=== PATIENT | male | born 1950 | race Two or more races ===

== ENCOUNTER 2018-10-16 22:26 | Emergency (ER) | payer MEDICARE, OTHER ==
[~2018-10-16] VITALS: Ht 172.7 cm; Wt 74.8 kg
[~2018-10-16 22:26] MED LIST: AMBIEN10 M1 ORAL; CELEXA20 MG ORAL; LINZESS145 MCG PO; NORCO 5-325 TA1 EACH ORAL; TRAMADOL HCL50 MG ORAL; VICODIN ES 7.51 EAC1 ORAL; ZANTAC150 MG ORAL
[2018-10-16 23:00] VITALS: BP 158/90
--- NOTE | 2018-10-16 23:00 | NUR ---
ED Nurse Note: recieved pt from home with c/o headache at 10/10 s/p fall yesterday, pt states he tripped over floor heater, dallass k.o, state hit his head in center and has intermittent dizziness and constant pain which motrin is not relieving at home, pt denies cp or any other pain or discomforts, pt assited with gowning and plced on cardiac monitoring.
[2018-10-16] MEDS ORDERED: IBUPROFEN600 MG ORAL (23:32)
--- NOTE | 2018-10-16 23:32 | Emergency Room Report ---
History of Present Illness General Chief Complaint: Multiple Trauma/Fall Source: Patient Present Illness HPI Is a 68-year-old male with history of chronic pain and is currently taking hydrocodone and tramadol monthly. He presents with chief complaint of headache. He claimed that he tripped and fell 2 days ago. Did not pass out. Complaining of pain to the nose. Jaw on the head. No loss of consciousness. He said it come in because not getting better. She said his been taking Motrin without relief. Said that he took his [place] from his friend that helped. Pain is 8 out of 10. No focal deficit. Allergies: Coded Allergies: PENICILLINS (Verified Allergy, Unknown, 05/02/14) swelling Patient History Past Medical History: see triage record, old chart reviewed Past Surgical History: none Pertinent Family History: none Social History: Denies: smoking Immunizations: other Reviewed Nursing Documentation: PMH: Agreed; PSxH: Agreed Nursing Documentation-PMH Hx Cancer: No Hx Neurological Problems: Yes - HEADACHES Review of Systems Eye: Denies: eye pain, blurred vision ENT: Denies: ear pain, nose congestion, throat swelling Respiratory: Denies: cough, shortness of breath Cardiovascular: Denies: chest pain, palpitations Gastrointestinal: Denies: abdominal pain, diarrhea, nausea, vomiting Musculoskeletal: Denies: back pain, joint pain Skin: Denies: rash Neurological: Reports: headache; Denies: numbness Endocrine: Denies: increased thirst, increased urine Hematologic/Lymphatic: Denies: easy bruising All Other Systems: negative except mentioned in HPI Physical Exam Vital Signs Date Time Temp Pulse Resp B/P (MAP) Pulse Ox O2 Delivery O2 Flow Rate FiO2 10/16/18 22:36 97.9 72 16 178/99 97 Room Air vitals with high blood pressure Sp02 EP Interpretation: reviewed, normal General Appearance: well appearing, no apparent distress, alert Head: normocephalic, atraumatic, other - There is no trauma to his head or nose /face Eyes: bilateral eye PERRL, bilateral eye EOMI ENT: hearing grossly normal, normal pharynx Neck: full range of motion, supple, no meningismus Respiratory: chest non-tender, lungs clear, normal breath sounds Cardiovascular #1: regular rate, rhythm, no murmur Gastrointestinal: normal bowel sounds, non tender, no mass, no organomegaly, no bruit, non-distended Musculoskeletal: back normal, gait/station normal, normal range of motion Psychiatric: mood/affect normal Skin: warm/dry Medical Decision Making Diagnostic Impression: Primary Impression: Head injury, acute Qualified Codes: S09.90XA - Unspecified injury of head, initial encounter Additional Impression: Opiate dependence Qualified Codes: F11.20 - Opioid dependence, uncomplicated ER Course Patient presents with reported head injury and headache. I see no trauma. CT scan negative. Initially said is not on any pain medication but cures system she already takes [place] 7.5 #60 and tramadol #90 every month. I suspect that drug-seeking behavior and opioid dependency. will discharge home. CT/MRI/US Diagnostic Results CT/MRI/US Diagnostic Results : Imaging Test Ordered: CT head Impression negative per radiologist Last Vital Signs Date Time Temp Pulse Resp B/P (MAP) Pulse Ox O2 Delivery O2 Flow Rate FiO2 10/16/18 23:00 64 14 Room Air 10/16/18 23:00 97.9 158/90 99 Status: improved Disposition: HOME, SELF-CARE Condition: Stable Scripts Ibuprofen* (MOTRIN*) 600 Mg Tablet 600 MG ORAL THREE TIMES A DAY, #30 TAB 0 Refills Prov: Armando Mesa MD 10/16/18 Additional Instructions: Take your pain medication as prescribed. Follow-up with your doctor in 7 days. Return if worse. Armando Mesa MD Oct 16, 2018 23:32
[2018-10-17 00:05] VITALS: BP 151/79
--- NOTE | 2018-10-17 00:06 | Diagnostic Imaging Report ---
EXAM: CT Head Without Intravenous Contrast CLINICAL HISTORY: TRAUMA TECHNIQUE: Axial computed tomography images of the head/brain without intravenous contrast. CTDI is 0.15, 70.38 mGy and DLP is 1358 mGy-cm. One or more of the following dose reduction techniques were used: automated exposure control, adjustment of the mA and/or kV according to patient size, use of iterative reconstruction technique. COMPARISON: No relevant prior studies available. FINDINGS: Brain: No acute infarct, hemorrhage, mass or edema. Minimal chronic small vessel ischemic disease. Ventricles: Unremarkable. No ventriculomegaly. Bones/joints: Unremarkable. No acute fracture. Soft tissues: Unremarkable. Sinuses: Mild mucosal thickening in the paranasal sinuses. Mastoid air cells: Unremarkable as visualized. No mastoid effusion. IMPRESSION: No acute findings.
--- NOTE | 2018-10-17 00:10 | NUR ---
ED Nurse Note: pt being d/c to home, all test negative, pain meds given decreased pain level to 5/10, no nausea, dizziness, sob, or chest pain noted, pt given f/u info, after care instructions and prescription which he re-verbalizes s/s to continue to monitor for, pt armband removed without incident, pt is ambulatory, nad noted during d/c to home.
[2018-10-17 00:15] VITALS: BP 151/79
== END 2018-10-17 00:15 | disposition home or self-care (01) ==
LOC: EMR 22:58
DX: S09.8XXA Other specified injuries of head, initial encounter (principal); W01.0XXA Fall on same level from slipping, tripping and stumbling without subsequent striking against object, initial encounter; Y92.9 Unspecified place or not applicable; F11.20 Opioid dependence, uncomplicated; Z88.0 Allergy status to penicillin; R51 Headache
CPT/HCPCS: 70450; 99284

== ENCOUNTER 2018-10-31 13:56 | Outpatient (CLI) | payer MEDICARE, OTHER ==
[~2018-10-31 13:56] MED LIST changes: +IBUPROFEN600 MG ORAL
--- NOTE | 2018-10-31 15:40 | GI Progress Note ---
Assessment/Plan Problems: (1) S/P partial gastrectomy ICD Codes: Z98.89 - S/P partial gastrectomy SNOMED: 841111387 (2) Small intestinal bacterial overgrowth ICD Codes: K63.89 - Other specified diseases of intestine SNOMED: 278226283 (3) Abdominal pain ICD Codes: R10.9 - Abdominal pain SNOMED: 67871268 (4) PUD (peptic ulcer disease) ICD Codes: K27.9 - PUD (peptic ulcer disease) SNOMED: 93007031 (5) Constipation ICD Codes: K59.00 - Constipation SNOMED: 83679889 Status: stable Status Narrative Seen with Dr. Ren Assessment/Plan Ordered abdominal pelvis CT to evaluate pain Continue Linzess as directed Will consider colonoscopy during next visit Return to clinic after imaging study The patient was seen and examined at bedside and all new and available data was reviewed in the patients chart. I agree with the above findings, impression and plan. (Patient seen earlier today. Signature stamp does not reflect patient encounter time.). - Kee Ren MD Subjective Subjective Patient had a colonoscopy back in 2013 noted with colonic polyps Has complaint of abdominal pain, GERD, constipation Is on Linzess which causes occasional diarrhea Objective Temperature 98.3 Blood pressure 135/85 Pulse 72 95% room air Had 30 pound weight loss in the past 2 years, noted as intentional Weight 161 pounds General Appearance: WD/WN, no apparent distress, alert Cardiovascular: normal rate Respiratory/Chest: normal breath sounds, no respiratory distress Abdominal Exam: normal bowel sounds, non tender, soft Extremities: normal range of motion, non-tender Gloria Mesa COSMETOLOGIST APPRENTICE Oct 31, 2018 15:40
== END 2018-10-31 14:26 | disposition home or self-care (01) ==
LOC: PAN 13:56
DX: K63.89 Other specified diseases of intestine (principal); K27.9 Peptic ulcer, site unspecified, unspecified as acute or chronic, without hemorrhage or perforation; K59.00 Constipation, unspecified
CPT/HCPCS: 99202

== ENCOUNTER 2018-11-08 19:07 | Emergency (ER) | payer MEDICARE, OTHER ==
[~2018-11-08] VITALS: Ht 172.7 cm; Wt 72.6 kg
--- NOTE | 2018-11-08 19:16 | NUR ---
ED Nurse Note: Received report. BIBA from home, c/o abdominal pain 10/10 with constipation. Ambulatory, AAOx4, hx of gastric ulcers. Pt states he is feeling weak and his abdomen is tender upon palpation. Placed on residential monitor. Will continue to monitor.
[2018-11-08 19:30] VITALS: BP 153/80
[2018-11-08] MEDS ORDERED: Isovue-300 100ml vial INJ PRN (19:45)
--- NOTE | 2018-11-08 19:51 | Emergency Room Report ---
History of Present Illness General Chief Complaint: Abdominal Pain Source: Patient, Medical Record, EMS Present Illness HPI Patient is a 68-year-old male who presented after increased generalized body aches and lower extremity pain. Patient reportedly had increased pain to this umbilical area. Patient had prior history of abdominal hernia. Patient had recently been seen by general surgeon and was noted to have some increased abdominal discomfort. Patient reports having some increased testicular pain. He denies any fever. He reports having some slightly increased dark urine. Allergies: Coded Allergies: MORPHINE (Unverified Allergy, Unknown, 11/08/18) PENICILLINS (Verified Allergy, Unknown, 05/02/14) swelling Patient History Past Medical History: see triage record Reviewed Nursing Documentation: PMH: Agreed; PSxH: Agreed Nursing Documentation-PMH Hx Cancer: No Hx Gastrointestinal Problems: Yes - GASTRIC ULCERS Hx Neurological Problems: Yes - HEADACHES Review of Systems All Other Systems: negative except mentioned in HPI Physical Exam Vital Signs Date Time Temp Pulse Resp B/P (MAP) Pulse Ox O2 Delivery O2 Flow Rate FiO2 11/08/18 19:02 98.2 70 21 144/82 98 Room Air Sp02 EP Interpretation: reviewed, normal General Appearance: normal inspection, well appearing, no apparent distress, alert, GCS 15, non-toxic, Chronically Ill Head: atraumatic ENT: normal ENT inspection, hearing grossly normal, normal voice Neck: normal inspection, full range of motion, supple, no bony tend Respiratory: normal inspection, lungs clear, normal breath sounds, no respiratory distress, no retraction, no wheezing Cardiovascular #1: regular rate, rhythm, no edema Gastrointestinal: normal inspection, normal bowel sounds, non tender, soft, no guarding, no hernia Genitourinary: no CVA tenderness Musculoskeletal: normal inspection, back normal, normal range of motion Neurologic: normal inspection, alert, oriented x3, responsive, sports development officer III-XII nml as tested, speech normal Psychiatric: normal inspection, judgement/insight normal, mood/affect normal Skin: normal inspection, normal color, no rash Medical Decision Making Diagnostic Impression: Primary Impression: Abdominal pain Additional Impressions: Pleural condition, unspecified Intrahepatic bile duct dilation ER Course Patient presented for low back pain. Differential diagnosis include was not limited to because of complexity of patient's case laboratory testing and imaging studies were ordered. Patient was noted to have some abdominal discomfort. Prior abdominal surgery. CT of abdomen pelvis read by radiology showed intrahepatic and extrahepatic biliary dilation without any pancreatic head mass. Patient was noted to have abnormal liver function tests as well as normal white blood count. Dr. Jansen was contacted and patient will be followed with primary care physician tomorrow. Labs Test 11/08/18 19:40 White Blood Count 5.5 K/UL (4.8-10.8) Red Blood Count 4.32 M/UL (4.70-6.10) Hemoglobin 12.3 G/DL (14.2-18.0) Hematocrit 37.9 % (42.0-52.0) Mean Corpuscular Volume 88 FL (80-99) Mean Corpuscular Hemoglobin 28.4 PG (27.0-31.0) Mean Corpuscular Hemoglobin Concent 32.4 G/DL (32.0-36.0) Red Cell Distribution Width 11.9 % (11.6-14.8) Platelet Count 183 K/UL (150-450) Mean Platelet Volume 6.8 FL (6.5-10.1) Neutrophils (%) (Auto) 66.6 % (45.0-75.0) Lymphocytes (%) (Auto) 24.0 % (20.0-45.0) Monocytes (%) (Auto) 6.8 % (1.0-10.0) Eosinophils (%) (Auto) 0.5 % (0.0-3.0) Basophils (%) (Auto) 2.1 % (0.0-2.0) Prothrombin Time 12.3 SEC (9.30-11.50) Prothromb Time International Ratio 1.2 (0.9-1.1) Activated Partial Thromboplast Time 21 SEC (23-33) Urine Color Yellow Urine Appearance Clear Urine pH 5 (4.5-8.0) Urine Specific [place] 1.015 (1.005-1.035) Urine Protein 2+ (NEGATIVE) Urine Glucose (UA) Negative (NEGATIVE) Urine Ketones 1+ (NEGATIVE) Urine Blood Negative (NEGATIVE) Urine Nitrite Negative (NEGATIVE) Urine Bilirubin Negative (NEGATIVE) Urine Urobilinogen 1 MG/DL (0.0-1.0) Urine Leukocyte Esterase 1+ (NEGATIVE) Urine RBC 0-2 /HPF (0 - 0) Urine WBC 2-4 /HPF (0 - 0) Urine Squamous Epithelial Cells None /LPF (NONE/OCC) Urine Bacteria Few /HPF (NONE) Sodium Level 137 MMOL/L (136-145) Potassium Level 4.2 MMOL/L (3.5-5.1) Chloride Level 106 MMOL/L (98-107) Carbon Dioxide Level 22 MMOL/L (21-32) Anion Gap 9 mmol/L (5-15) Blood Urea Nitrogen 9 mg/dL (7-18) Creatinine 1.1 MG/DL (0.55-1.30) Estimat Glomerular Filtration Rate > 60 mL/min (>60) Glucose Level 93 MG/DL (74-106) Calcium Level 9.0 MG/DL (8.5-10.1) Total Bilirubin 0.3 MG/DL (0.2-1.0) Aspartate Amino Transf (AST/SGOT) 22 U/L (15-37) Alanine Aminotransferase (ALT/SGPT) 13 U/L (12-78) Alkaline Phosphatase 58 U/L (46-116) Troponin I 0.011 ng/mL (0.000-0.056) Total Protein 8.9 G/DL (6.4-8.2) Albumin 3.4 G/DL (3.4-5.0) Globulin 5.5 g/dL Albumin/Globulin Ratio 0.6 (1.0-2.7) Lipase 114 U/L (73-393) Last Vital Signs Date Time Temp Pulse Resp B/P (MAP) Pulse Ox O2 Delivery O2 Flow Rate FiO2 11/08/18 19:30 98.2 66 19 153/80 100 Room Air Status: improved Disposition: HOME, SELF-CARE Condition: Stable Scripts Hydrocodone Bit/Acetaminophen 10-325* (NORCO 10-325*) 1 Each Tablet 1 TAB ORAL Q6H PRN for For Pain, #20 TAB 0 Refills PRN PAIN Prov: Carlos Young MD 11/08/18 Carlos Young MD Nov 08, 2018 19:51
[2018-11-08 20:08] LABS: BASOPHILS % (AUTO) 2.1 % (0.0-2.0); EOSINOPHILS % (AUTO) 0.5 % (0.0-3.0); HEMATOCRIT 37.9 % (42.0-52.0); HEMOGLOBIN 12.3 G/DL (14.2-18.0); MEAN CORPUSCULAR VOLUME 88 FL (80-99); MONOCYTES % (AUTO) 6.8 % (1.0-10.0); NEUTROPHILS % (AUTO) 66.6 % (45.0-75.0); PLATELET COUNT 183 K/UL (150-450); RED BLOOD COUNT 4.32 M/UL (4.70-6.10); RED CELL DISTRIBUTION WIDTH 11.9 % (11.6-14.8); WHITE BLOOD COUNT 5.5 K/UL (4.8-10.8)
[2018-11-08 20:17] LABS: APPEARANCE,URINE CLEAR; BILIRUBIN, URINE NEGATIVE (NEGATIVE); GLUCOSE, URINE (UA) NEGATIVE (NEGATIVE); INR 1.2 (0.9-1.1); KETONES,URINE 1+ (NEGATIVE); LEUKOCYTE ESTERASE ,URINE 1+ (NEGATIVE); NITRITE,URINE NEGATIVE (NEGATIVE); PH,URINE 5 (4.5-8.0); PROTEIN,URINE 2+ (NEGATIVE); UROBILINOGEN,URINE 1 MG/DL (0.0-1.0)
[2018-11-08 20:21] LABS: COLOR,URINE YELLOW
[2018-11-08 20:28] LABS: ANION GAP 9 mmol/L (5-15); BLOOD UREA NITROGEN 9 mg/dL (7-18); CARBON DIOXIDE 22 MMOL/L (21-32); CHLORIDE 106 MMOL/L (98-107); CREATININE 1.1 MG/DL (0.55-1.30); POTASSIUM 4.2 MMOL/L (3.5-5.1); SODIUM 137 MMOL/L (136-145)
[2018-11-08 20:41] LABS: ALANINE AMINOTRANSFERASE 13 U/L (12-78); ALBUMIN 3.4 G/DL (3.4-5.0); ALBUMIN/GLOBULIN RATIO 0.6 (1.0-2.7); ALKALINE PHOSPHATASE 58 U/L (46-116); ASPARTATE AMINO TRANSFERASE 22 U/L (15-37); BILIRUBIN,TOTAL 0.3 MG/DL (0.2-1.0)
[2018-11-08] MEDS ORDERED: Albuterol/Ipratropium 3ml neb ONE (20:49)
[2018-11-08] MEDS ORDERED: Lidocaine 1% Plain 30 ml INJ ONE (22:21)
[2018-11-08] MEDS ORDERED: NORCO 10-325 T1 EACH ORAL (22:49)
[2018-11-08] MEDS ORDERED: HYDROcodone/Acetamin 10/325 tab ORAL ONE (23:00)
[2018-11-08 23:40] VITALS: BP 148/78
--- NOTE | 2018-11-08 23:40 | NUR ---
ER Nurse Note: Pt seen, treated, medically cleared by ERMD for discharge. Discharge instructions and prescriptions given with repeat verbailzation by pt. Instructed pt to follow up with primary care physican within one week. Pt a&ox4, VSS, no signs of distress. IV discontinued; site clean and bandaged. ID band removed. Pt left with all belongings via own transportation with steady gait.
--- NOTE | 2018-11-09 09:21 | Diagnostic Imaging Report ---
Clinical Indication: Abdominal pain, increased generalized body aches, increased umbilical pain Technique: Patient given oral contrast. IV administration nonionic contrast. Venous phase spiral acquisition obtained through the abdomen and pelvis. Multiplanar reconstructions were generated. Total dose length product 644.89 mGycm. CTDIvol(s) 12.2 mGy. Dose reduction achieved using automated exposure control Comparison: 01/30/2015 Findings: The appendix is normal. There is no evidence of diverticulosis or diverticulitis. Ingested contrast is seen throughout the proximal and mid small bowel, has not reached the colon. There is mild generalized prominence to the small bowel loops, which are fluid-filled distally and also contains some small bowel feces. No transition to normal caliber small bowel is demonstrated. The caliber of the small bowel loops is mildly increased as compared to the prior exam. No free or loculated intraperitoneal gas or fluid is evident. There is evidence of prior gastric surgery. The duodenum and distal esophagus are unremarkable. Granulomatous calcifications are seen within the liver. The gallbladder is nondistended, otherwise unremarkable. There is mild ectasia of the extrahepatic and central intrahepatic bile ducts, common bile duct measuring up to 8 mm in diameter. No downstream obstructive lesion is demonstrated. However, this is a new finding. The pancreas, spleen, adrenals, kidneys are unremarkable. No retroperitoneal or mesenteric mass or adenopathy. There is a circumaortic left renal vein incidentally noted. The prostate is enlarged, measuring 6 cm transverse by 4.5 cm AP. Included lung bases again demonstrate pleural plaques. There is minimal linear parenchymal scarring noted. The bones are unremarkable. Impression: Mildly prominent small bowel loops without evidence of transition, may be baseline for this patient or represent mild ileus Ectasia of the extrahepatic and central intrahepatic bile ducts, without definite downstream obstructive lesion. 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 The CT scanner at [facility] is accredited by the [employer] and the scans are performed using protocols designed to limit radiation exposure to as low as reasonably achievable to attain images of sufficient resolution adequate for diagnostic evaluation.
== END 2018-11-08 23:40 | disposition home or self-care (01) ==
LOC: EDBD 19:07 → EMR 19:40
DX: R10.33 Periumbilical pain (principal); J92.9 Pleural plaque without asbestos; K83.9 Disease of biliary tract, unspecified; Z88.5 Allergy status to narcotic agent; Z88.0 Allergy status to penicillin
CPT/HCPCS: 36415; 74177; 80053; 81003; 83690; 84484; 85025; 85610; 85730; 86850; 86900; 86901; 96372; 96374; 99284; J2001; J2405; J7040; Q9967; J7620

== ENCOUNTER 2019-01-22 11:04 | Outpatient (CLI) | payer MEDICARE, OTHER ==
[~2019-01-22 11:04] MED LIST changes: +NORCO 10-325 T1 EACH ORAL
--- NOTE | 2019-01-22 15:16 | Diagnostic Imaging Report ---
Indication: Lower back pain since fall 3 years ago, unable to exercise the left cardiology Technique: Sagittal T1 and T2 fast spin echo, sagittal STIR, axial T1 and T2 fast spin-echo images of the lumbar spine Comparison: none Findings: There is a lesion in the right side of the T12 vertebral body which demonstrates high signal on the T2-weighted images, very minimally increased signal on the T1-weighted images, and slightly increased signal on the STIR images. This measures 12 mm AP by 15 mm AP by 18 mm craniocaudad. There may be a very subtle abnormality in this location on a recent abdomen pelvis CT scan of 11/08/2018, but this is extremely questionable at best. The remainder of the osseous marrow signal is normal. Bony alignment is normal. Vertebral body heights are preserved. The conus medullaris terminates at L1 At L1-2, there is mild degenerative disc narrowing. No significant disc bulge or protrusion, spinal stenosis, or neural foraminal stenosis. At L2-3, there is mild circumferential annular bulge, which does not significantly narrow the spinal canal or compress the nerve roots. The bulging disc results in minimal narrowing of the bilateral neural foramina. At L3-4, the disc space is preserved. There is mild circumferential annular bulge, which does not significantly compress the spinal canal or neural foramina. There is mild bilateral facet arthrosis. At L4-5, the disc space is preserved. There is circumferential annular bulge. This results in moderate narrowing of the spinal canal. This is exacerbated by ligamentum flavum hypertrophy. There is mild narrowing of the bilateral neural foramina. At L5-S1, there is mild circumferential annular bulge. There is a right paracentral high intensity zone. The bulging disc does not significantly narrow the spinal canal or the neural foramina. The disc space is preserved The included extra spinal soft tissues are unremarkable. Impression: No acute bony trauma Right-sided T12 vertebral body lesion, as described. This does not demonstrate typical signal characteristics of a hemangioma; possibly an atypical hemangioma but other etiologies should also be considered. Recommend nuclear medicine bone scan to determine if metabolic activity present Moderate spinal stenosis at L4-5, due to circumferential annular bulge and ligament flavum hypertrophy. Other mild multilevel degenerative changes as detailed on a level by level basis above
--- NOTE | 2019-01-22 16:38 | Diagnostic Imaging Report ---
Indication: Pain in neck status post fall 3 years ago Technique: Sagittal T1 FLAIR PROPELLER, sagittal T2 PROPELLOR, sagittal STIR, axial T2 PROPELLER, axial 3D COSMIC ASPIR images were obtained through the cervical spine Comparison: none Findings: Bony alignment is normal. There is a low signal focus within the base of the dens which is low signal on all sequences and most likely an osteosclerotic lesion, possibly a bone island. Vertebral marrow signal is normal otherwise. Intrinsic cord signal is normal. The disc spaces are preserved. At C4-5, there is central posterior disc protrusion. This results in borderline narrowing of the spinal canal and slightly indents the anterior aspect of the cord. There is moderate neural foraminal narrowing at this level due to uncinate and facet hypertrophy. There is mild narrowing of the disc space At C5-6, there is mild circumferential annular bulge. This does not result in any significant spinal canal narrowing. There is moderate neural of the bilateral neural foramina. The disc space is preserved At C6-7, there is moderate narrowing of the bilateral neural foramina. No significant disc bulge or protrusion. The disc space is preserved At the remaining disc levels, no significant disc bulge or protrusion, spinal stenosis, or neural foraminal stenosis or significant disc space narrowing Included extra spinal soft tissues are unremarkable. Impression: No acute bony trauma Degenerative changes as detailed on a level by level basis above, including mild spinal stenosis at C4-5.
--- NOTE | 2019-01-22 16:52 | Diagnostic Imaging Report ---
Indication: Neck pain after dental work. Mouth pain, pain in teeth Technique: Sagittal T2 fast spin echo, coronal T2 fat saturated, coronal T2 STIR, coronal T1 fast spin echo, axial T2 STIR, axial T1 fast spin echo axial T2 fat-saturated, pre and postcontrast axial T1 fat saturated, postcontrast coronal T1 fat saturated Comparison: none Findings: The visualized intracranial structures are remarkable for the presence of mild enlargement of the ventricles and extra axial CSF spaces. The optic globes and orbits appear unremarkable. There is a mucous retention cyst in the floor of the right maxillary sinus as well as some circumferential mucosal thickening. No definite cervical mass or adenopathy. The salivary glands appear to be unremarkable. The upper aerodigestive tract is unremarkable. Minimal degenerative changes of the cervical spine are detailed in separate cervical spine MRI report. No unusual fluid collections. No evidence of prevertebral soft tissue swelling. No definite mandibular or maxillary osseous signal abnormality or abnormal contrast enhancement. Impression: No definite acute or significant abnormality demonstrated. Right maxillary sinus polyp versus mucous retention cyst incidentally noted
== END 2019-01-22 13:04 | disposition home or self-care (01) ==
LOC: MRI 11:04
DX: M54.2 Cervicalgia (principal); M48.02 Spinal stenosis, cervical region; M54.5 Low back pain; M48.061 Spinal stenosis, lumbar region without neurogenic claudication; J33.8 Other polyp of sinus
CPT/HCPCS: 70543; 72141; 72148; A9585

== ENCOUNTER 2019-09-27 08:22 | Day surgery (SDC) | payer MEDICARE, OTHER ==
[~2019-09-27] VITALS: Ht 172.7 cm; Wt 76.7 kg
[2019-09-27] VITALS (12 sets, daily range): BP systolic 137–167; BP diastolic 74–103
[~2019-09-27 08:22] MED LIST changes: +LR 1000ml 1,000 ML IV SCH
--- NOTE | 2019-09-27 09:35 | Pre-Procedure Note/Attestation ---
Pre-Procedure Note/Attestation Complete Prior to Procedure Planned Procedure: not applicable Procedure Narrative: esophagogastroduodenoscopy and colonoscopy Indications for Procedure Pre-Operative Diagnosis: screening colon, GERD Attestation I attest that I discussed the nature of the procedure; its benefits; risks and complications; and alternatives (and the risks and benefits of such alternatives ), prior to the procedure, with the patient (or the patient's legal commercial representative). I attest that, if there was a reasonable possibility of needing a blood transfusion, the patient (or the patient's legal commercial representative) was given the [facility] standardized written summary, pursuant to the [place] Blood Safety Act ([place] Health and Safety Code # 1645, as amended). I attest that I re-evaluated the patient just prior to the surgery and that there has been no change in the patient's H&P, except as documented below: Kee Ren MD Sep 27, 2019 09:35
--- NOTE | 2019-09-27 09:41 | Short Stay Surgery H&P ---
History of Present Illness History of Present Illness Chief Complaint screening colon, GERD HPI Pete Gongora is a 69 year old male who was admitted on for Status Post Partial Gastectomy,Gerd,Colonic Polyps Patient History Allergies: Coded Allergies: MORPHINE (Unverified Allergy, Unknown, 11/08/18) PENICILLINS (Verified Allergy, Unknown, 05/02/14) swelling PAST MEDICAL HISTORY: (1) S/P partial gastrectomy (2) Abdominal pain (3) Small intestinal bacterial overgrowth (4) PUD (peptic ulcer disease) (5) Constipation Medication History Scheduled Citalopram Hydrobromide* (Celexa*), 20 MG ORAL DAILY, (Reported) Ibuprofen* (Motrin*), 600 MG ORAL THREE TIMES A DAY Linaclotide (Linzess), 145 MCG PO DAILY, (Reported) Ranitidine Hcl* (Zantac*), 150 MG ORAL TWICE A DAY, (Reported) Scheduled PRN Hydrocodone Bit/Acetaminophen 10-325* ([place] 10-325*), 1 TAB ORAL Q6H PRN for For Pain Hydrocodone Bit/Acetaminophen 7.5-300 Mg Tabl (Vicodin Es 7.5-300 Mg Tablet), 1 TAB ORAL Q6H PRN for For Pain, (Reported) Tramadol Hcl* (Ultram*), 50 MG ORAL BID PRN for For Pain, (Reported) Zolpidem Tartrate* (Ambien*), 10 MG ORAL HS PRN for Insomnia, (Reported) Review of Systems Cardiovascular: Reports: no symptoms Skeletal: Reports: no symptoms Gastrointestinal: Reports: no symptoms Genitourinary: Reports: no symptoms Neurologic: Reports: no symptoms Endocrine: Reports: no symptoms Physical Exam Skin: normal HENT: normal Heart: normal Lungs: normal Abdomen: normal Extremities: normal Plan Plan of Care esophagogastroduodenoscopy and colonoscopy Attestation Are the patient's medical conditions optimized for surgery? Attestation Response: yes Kee Ren MD Sep 27, 2019 09:41
[2019-09-27] MEDS ORDERED: Propofol 200mg/20ml IV ONE (10:00)
[2019-09-27] MEDS ORDERED: LR 1000ml ONE (10:00)
[2019-09-27] MEDS ORDERED: Lidocaine 1% MPF 10mg/ml 5ml ONE (10:00)
--- NOTE | 2019-09-27 10:39 | Anethesia Preoperative Eval ---
Anesthesia Pre-op PMH/ROS General Date of Evaluation: Sep 27, 2019 Time of Evaluation: 10:03 Anesthesiologist: Sheyla ASA Score: ASA 2 Mallampati Score Class I : Soft palate, uvula, fauces, pillars visible Class II: Soft palate, uvula, fauces visible Class III: Soft palate, base of uvula visible Class IV: Only hard plate visible Mallampati Classification: Class II Surgeon: Gela Diagnosis: GERD Surgical Procedure: EGD/Colonoscopy Anesthesia History: none Social History: current smoker Family History: no anesthesia problems Allergies: Coded Allergies: MORPHINE (Unverified Allergy, Unknown, 11/08/18) PENICILLINS (Verified Allergy, Unknown, 05/02/14) swelling Medications: see eMAR Patient NPO?: Yes NPO Date: Sep 27, 2019 NPO Time: 00:01 Past Medical History Cardiovascular: Reports: HTN; Denies: CAD, ID, valve dz, arrhythmia, other Pulmonary: Reports: other - smoking; Denies: asthma, COPD, JUAN Gastrointestinal/Genitourinary: Reports: GERD, other - PUD; Denies: CRI, ESRD Neurologic/Psychiatric: Denies: dementia, CVA, depression/anxiety, TIA, other Endocrine: Denies: DM, hypothyroidism, steroids, other HEENT: Denies: cataract (L), cataract (R), glaucoma, [place] (L), [place] (R), other Hematology/Immune: Denies: anemia, DVT, bleeding disorder, other Musculoskeletal/Integumentary: Denies: OA, RA, DJD, DDD, edema, other PSxH Narrative: Partial Gastrostomy Anesthesia Pre-op Phys. Exam Physician Exam Last Vital Signs Date Time Temp Pulse Resp B/P (MAP) Pulse Ox O2 Delivery O2 Flow Rate FiO2 09/27/19 10:03 98.2 65 18 137/90 97 Room Air Constitutional: NAD Neurologic: CN 2-12 intact Cardiovascular: RRR Respiratory: CTA Gastrointestinal: S/NT/ND Airway Exam Mallampati Classification 2 Mallampati Score: Class II MO: full Neck: normal ROM: full Dentures: no upper, no lower Anesthesia Pre-op A/P Risk Assessment & Plan Plan: mac Pre-Antibiotics Drug: none Jana Carrion CRNA Sep 27, 2019 10:39
--- NOTE | 2019-09-27 10:48 | Endoscopy Procedure Note ---
Endoscopy Procedure Note General Indication for Procedure: screening colon, GERD Procedures Performed: EGD, colonoscopy Operative Findings/Diagnosis: gastritis, 4 polyps Specimen: yes Pt Tolerated Procedure Well: Yes Estimated Blood Loss: none Anesthesia Anesthesiologist: adelina Anesthesia: MAC Inserted Devices Implant(s) used?: No Quality Quality of Bowel Preparation: Good Did scope reach the cecum?: Yes Was there any complications?: No GI Core Measures 50 yrs or older w/o bx or poly: No 10yrs. F/U recommended: Yes If not recommended, why?: Above average risk 18 years or older w/prev. colo: Yes <3yrs. since last colonoscopy: No Kee Ren MD Sep 27, 2019 10:48
--- NOTE | 2019-09-27 10:54 | Immediate Post-Op Evaluation ---
Immediate Post-Op Evalulation Immediate Post-Op Evalulation Procedure: EGD/Colonoscoopy Date of Evaluation: Sep 27, 2019 Time of Evaluation: 10:53 IV Fluids: 500 Blood Pressure Systolic: 145 Blood Pressure Diastolic: 90 Pulse Rate: 90 Respiratory Rate: 14 O2 Sat by Pulse Oximetry: 99 Temperature (Fahrenheit): 97.5 Nausea: No Vomiting: No Complications none Patient Status: awake, reacts, patent Hydration Status: adequate Drug: none Jana Carrion CRNA Sep 27, 2019 10:54
[2019-09-27] MEDS ORDERED: fentaNYL 100 mcg/2 mL IV PRN (11:00)
--- NOTE | 2019-09-27 15:10 | 48 Hour Post Anesthesia Eval ---
Post Anesthesia Evaluation Procedure: EGD/Colonoscoopy Date of Evaluation: Sep 27, 2019 Time of Evaluation: 15:10 Blood Pressure Systolic: 153 0: 74 Pulse Rate: 74 Respiratory Rate: 14 O2 Sat by Pulse Oximetry: 98 Airway: patent Nausea: No Vomiting: No Hydration Status: adequate Cardiopulmonary Status: stable Mental Status/LOC: patient returned to baseline Post-Anesthesia Complications: none Follow-up care needed: ready to discharge Jana Carrion CRNA Sep 27, 2019 15:10
--- NOTE | 2019-09-27 16:00 | Procedure Note ---
DATE OF PROCEDURE: 09/27/2019 SURGEON: Kee Ren N.D. PROCEDURE: Upper endoscopy with biopsy and colonoscopy with snare polypectomy and biopsy. ANESTHESIA: Per RAKING MACHINE OPERATOR, Jana Tarrillion. INSTRUMENT: Olympus adult flexible upper endoscope and colonoscope. REASON FOR PROCEDURE: The procedure, risks, benefits, and possible consequences, including hemorrhage, aspiration, perforation and infection, and alternative treatments, were explained to the patient/legal guardian by Dr. Kee Ren and the patient/legal guardian understood and accepted these risks. INDICATION: Screening colonoscopy, chronic GERD. DESCRIPTION OF PROCEDURE: After informed consent was obtained and the patient was adequately sedated, Olympus upper endoscope was advanced from mouth into the second portion of the duodenum and retroflexion performed in the stomach. The patient has evidence of partial gastrectomy with evidence of severe bile reflux into the stomach. There was diffuse gastritis as a result of that. Biopsy from the antrum and body was obtained. Then the scope was gradually retrieved. There was evidence of small inlet patch in the upper esophagus. At this time, the upper endoscope was completely removed and the patient was turned over for colonoscopy. First, a rectal exam was performed, which was positive for internal hemorrhoids. Then, the scope was advanced from the rectum into cecum documented by appendiceal orifice, ileocecal valve, and right upper quadrant palpation. Quality of prep was good. The patient had one sessile polyp in the transverse colon measured roughly about 7 mm, removed with hot snare polypectomy technique. The patient had evidence of three smaller polyps in the sigmoid and rectosigmoid area, which were removed with a cold biopsy forceps technique. The rest of the examination grossly looked within normal limits. Retroflexion of rectum showed evidence of medium-sized internal hemorrhoids. SUMMARY OF FINDINGS: 1. Bile reflux. 2. Partial antrectomy. 3. Gastritis, status post biopsy. 4. Inlet patch. 5. Four colonic polyps removed, see above for detail. 6. Internal hemorrhoids. RECOMMENDATIONS: 1. Followup biopsy results and treat accordingly. 2. Given 4 polyps, recommend repeat colonoscopy in 3 years. Kee Ren M.D. DR: MARGUERITE JOB#: [id number] CC:
--- NOTE | 2019-09-28 13:44 | Cardiology Report ---
APPROVED REPORT EKG Measurement Heart [id number] <Conclusion> Normal sinus rhythm Normal ECG
== END 2019-09-27 14:20 | disposition home or self-care (01) ==
LOC: GAS 08:22
DX: Z12.11 Encounter for screening for malignant neoplasm of colon (principal); K21.9 Gastro-esophageal reflux disease without esophagitis; K64.8 Other hemorrhoids; K63.5 Polyp of colon; K29.70 Gastritis, unspecified, without bleeding; Z90.3 Acquired absence of stomach [part of]; Z87.11 Personal history of peptic ulcer disease; Z88.0 Allergy status to penicillin; Z88.6 Allergy status to analgesic agent; Z90.49 Acquired absence of other specified parts of digestive tract; I10 Essential (primary) hypertension
CPT/HCPCS: 43239; 45380; 45385; 93005; J2704; J3010; J7120; 94003; 94150

== ENCOUNTER 2019-11-19 20:43 | Emergency (ER) | payer MEDICARE, OTHER ==
[~2019-11-19] VITALS: Ht 175.3 cm; Wt 78.5 kg
[~2019-11-19 20:43] MED LIST changes: -LR 1000ml 1,000 ML IV SCH
[2019-11-19 20:50] VITALS: BP 147/80
--- NOTE | 2019-11-19 20:50 | NUR ---
ED Nurse Note: Pt brought into ED by [facility] ambulance unit [id number] for c/o weakness x5 days. Pt also reports nausea and generalized body pain and chills. Pt is aaox4, no cardiac or respiratory distress noted, ambulatory with steady gait. Will continue to monitor.
--- NOTE | 2019-11-19 21:05 | Emergency Room Report ---
History of Present Illness General Chief Complaint: Generalized Weakness Source: Patient, Medical Record Present Illness HPI This is a 69-year-old male with a history of depression. He presents with chief complaint of generalized weakness. Onset for last 5 days. Slight congestion. Has headache and body pain. Nausea but no vomiting. Subjective fever and chills. No diarrhea. No urinary complaint. Achy pain all over. Pain is 7 out of 10. He was concerned so he came in. Denies any chest pain or focal deficit. Allergies: Coded Allergies: MORPHINE (Unverified Allergy, Unknown, 11/08/18) PENICILLINS (Verified Allergy, Unknown, 05/02/14) swelling Patient History Past Medical History: see triage record, old chart reviewed, psych hx Past Surgical History: none Pertinent Family History: none Social History: Denies: smoking Immunizations: other Reviewed Nursing Documentation: PMH: Agreed; PSxH: Agreed Nursing Documentation-PMH Past Medical History: No History, Except For Hx Cancer: No Hx Gastrointestinal Problems: Yes - GASTRIC ULCERS Hx Neurological Problems: Yes - HEADACHES Review of Systems Eye: Denies: eye pain, blurred vision ENT: Denies: ear pain, nose congestion, throat swelling Respiratory: Denies: cough, shortness of breath Cardiovascular: Denies: chest pain, palpitations Gastrointestinal: Denies: abdominal pain, diarrhea, nausea, vomiting Musculoskeletal: Reports: muscle pain; Denies: back pain, joint pain Skin: Denies: rash Neurological: Reports: headache; Denies: numbness Endocrine: Denies: increased thirst, increased urine Hematologic/Lymphatic: Denies: easy bruising All Other Systems: negative except mentioned in HPI Physical Exam Vital Signs Date Time Temp Pulse Resp B/P (MAP) Pulse Ox O2 Delivery O2 Flow Rate FiO2 11/19/19 20:44 98.8 75 14 147/80 (102) 96 Room Air Vitals unremarkable Sp02 EP Interpretation: reviewed, normal General Appearance: well appearing, no apparent distress, alert Head: normocephalic, atraumatic Eyes: bilateral eye PERRL, bilateral eye EOMI ENT: hearing grossly normal, normal pharynx Neck: full range of motion, supple, no meningismus Respiratory: chest non-tender, lungs clear, normal breath sounds Cardiovascular #1: regular rate, rhythm, no murmur Gastrointestinal: normal bowel sounds, non tender, no mass, no organomegaly, no bruit, non-distended Musculoskeletal: back normal, normal range of motion, gait/station normal Psychiatric: depressed affect Medical Decision Making Diagnostic Impression: Primary Impression: Episode of generalized weakness ER Course Patient with generalized weakness. Most likely a viral type of infection. No evidence of ACS, PE, pneumonia, UTI or other bacterial infection. Last Vital Signs Date Time Temp Pulse Resp B/P (MAP) Pulse Ox O2 Delivery O2 Flow Rate FiO2 11/19/19 20:44 98.8 75 14 147/80 (102) 96 Room Air Status: improved Disposition: HOME, SELF-CARE Condition: Stable Scripts Ibuprofen* (MOTRIN*) 600 Mg Tablet 600 MG ORAL THREE TIMES A DAY, #30 TAB 0 Refills Prov: Armando Mesa MD 11/19/19 Patient Instructions: Weakness Additional Instructions: Increase fluids. Follow-up with your doctor in 7 days. Return if worse. Armando Mesa MD Nov 19, 2019 21:05
[2019-11-19] MEDS ORDERED: Ketorolac 30mg Inj IV ONE (21:15)
[2019-11-19 21:52] LABS: BASOPHILS % (AUTO) 0.7 % (0.0-2.0); EOSINOPHILS % (AUTO) 0.6 % (0.0-3.0); HEMATOCRIT 41.3 % (42.0-52.0); HEMOGLOBIN 14.2 G/DL (14.2-18.0); LYMPHOCYTES % (AUTO) 20.8 % (20.0-45.0); MEAN CORPUSCULAR VOLUME 85 FL (80-99); MONOCYTES % (AUTO) 8.4 % (1.0-10.0); NEUTROPHILS % (AUTO) 69.5 % (45.0-75.0); PLATELET COUNT 234 K/UL (150-450); RED BLOOD COUNT 4.83 M/UL (4.70-6.10); RED CELL DISTRIBUTION WIDTH 11.9 % (11.6-14.8); WHITE BLOOD COUNT 7.8 K/UL (4.8-10.8)
[2019-11-19 21:52] LABS: APPEARANCE,URINE CLEAR; BILIRUBIN, URINE NEGATIVE (NEGATIVE); COLOR,URINE PALE YELLOW; GLUCOSE, URINE (UA) NEGATIVE (NEGATIVE); KETONES,URINE NEGATIVE (NEGATIVE); LEUKOCYTE ESTERASE ,URINE NEGATIVE (NEGATIVE); NITRITE,URINE NEGATIVE (NEGATIVE); PH,URINE 8 (4.5-8.0); PROTEIN,URINE NEGATIVE (NEGATIVE); UROBILINOGEN,URINE NORMAL MG/DL (0.0-1.0)
[2019-11-19 21:59] LABS: ANION GAP 4 mmol/L (5-15); BLOOD UREA NITROGEN 8 mg/dL (7-18); CALCIUM 9.6 MG/DL (8.5-10.1); CARBON DIOXIDE 32 MMOL/L (21-32); CHLORIDE 103 MMOL/L (98-107); CREATININE 1.1 MG/DL (0.55-1.30); POTASSIUM 4.9 MMOL/L (3.5-5.1); SODIUM 139 MMOL/L (136-145)
[2019-11-19] MEDS ORDERED: IBUPROFEN600 MG ORAL (22:30)
[2019-11-19 22:50] VITALS: BP 132/90
--- NOTE | 2019-11-19 22:50 | NUR ---
ER DISCHARGE NOTE: Patient is cleared to be discharged per ERMD, pt is aox4, on room air, with stable vital signs. pt was given dc and prescription instructions, pt was able to verbalize understanding, pt id band and iv site removed without complications. pt is able to ambulate with steady gait. pt took all belongings.
== END 2019-11-19 22:50 | disposition home or self-care (01) ==
LOC: EDBD 20:43 → EMR 21:22
DX: R53.1 Weakness (principal); F32.9 Major depressive disorder, single episode, unspecified; Z87.11 Personal history of peptic ulcer disease; Z88.0 Allergy status to penicillin; Z88.5 Allergy status to narcotic agent
CPT/HCPCS: 36415; 80048; 81001; 84484; 85025; 96361; 96374; 99284; J1885; J7030

== ENCOUNTER 2020-01-15 13:57 | Outpatient (CLI) | payer MEDICARE, OTHER ==
--- NOTE | 2020-01-15 14:10 | NUR ---
BP IS HIGH 163/103, HR 77. PT DENIES ANY PALPITATION, HEADACHE OR SOB. NO HX OF HTN. REPORTED TO DR VARMA. INSTRUCTED PT TO CONTACT PCP, DR KRAMER FOR CHECK UP. Addendum: 01/15/20 at 1545 by MARIO OTOOLE Amended: Links added.
[2020-01-15 15:42] VITALS: BP 163/103
--- NOTE | 2020-01-16 14:04 | General Progress Note ---
Assessment/Plan Assessment/Plan: SUMMARY OF FINDINGS: 1. Bile reflux. 2. Partial antrectomy. 3. Gastritis, status post biopsy. 4. Inlet patch. 5. Four colonic polyps removed, see above for detail. 6. Internal hemorrhoids. RECOMMENDATIONS:. Given 4 polyps, recommend repeat colonoscopy in 3 years. abd us linzess RUQ abd Anusol-HC Align Subjective ROS Limited/Unobtainable: Yes Allergies: Coded Allergies: MORPHINE (Unverified Allergy, Unknown, 11/08/18) PENICILLINS (Verified Allergy, Unknown, 05/02/14) swelling Objective Last 24 Hour Vital Signs Date Time Temp Pulse Resp B/P (MAP) Pulse Ox O2 Delivery O2 Flow Rate FiO2 01/15/20 15:42 98.1 77 16 163/103 (123) 96 General Appearance: alert EENT: normal ENT inspection Neck: supple Cardiovascular: normal rate Respiratory/Chest: decreased breath sounds Abdomen: normal bowel sounds, non tender, soft Extremities: non-tender Kee Ren MD Jan 16, 2020 14:04
== END 2020-01-15 15:56 | disposition home or self-care (01) ==
LOC: PAN 13:57
DX: K63.5 Polyp of colon (principal); K29.70 Gastritis, unspecified, without bleeding; K64.8 Other hemorrhoids; Z88.6 Allergy status to analgesic agent; Z88.0 Allergy status to penicillin
CPT/HCPCS: 99212